=== PATIENT | female | born 1985 | race Caucasian/White ===

== ENCOUNTER 2017-03-28 07:05 | Emergency (ER) | payer BC ==
--- NOTE | 2017-03-28 07:19 | UC ---
Throat Pain/Nasal [place] HPI - HPI Summary HPI Summary: 31 YEAR OLD FEMALE PRESENTS WITH COMPLAINS OF SORE THROAT. SISTER POSITIVE FOR STREP. - History of Current Complaint Stated Complaint: SORE THROAT Time Seen by Provider: 03/28/17 07:19 Hx Last Menstrual Period: 6 mos - Allergies/Home Medications Allergies/Adverse Reactions: Allergies Allergy/AdvReac Type Severity Reaction Status Date / Time seasonal Allergy Sneezing Uncoded 10/07/15 08:02 Home Medications: Home Medications Acetaminophen TAB* [Tylenol TAB*] 500 mg PO ONCE PRN 03/28/17 [History Confirmed 03/28/17] Ibuprofen TAB* [Motrin TAB* 600 MG] 600 mg PO DAILY PRN 03/28/17 [History Confirmed 03/28/17] Loratadine [Claritin 10 MG CAP] 10 mg PO ONCE PRN 03/28/17 [History Confirmed ] Topical Fungal 1 applic TOPICAL BID 03/28/17 [History Confirmed 03/28/17] PMH/Surg Hx/FS Hx/Imm Hx - Surgical History Surgical History: Yes Surgery Procedure, Year, and Place: right shoulder x2 1999, right knee arthroscopy 1999 - Social History Alcohol Use: Occasionally Substance Use Type: None Smoking Status (MU): Never Smoked Tobacco Review of Systems Constitutional: Negative Skin: Negative Eyes: Negative ENT: Sore Throat, Nasal Discharge Respiratory: Negative Cardiovascular: Negative Gastrointestinal: Negative Genitourinary: Negative Motor: Negative Neurovascular: Negative Musculoskeletal: Negative Neurological: Negative Psychological: Negative All Other Systems Reviewed And Are Negative: Yes Physical Exam Triage Information Reviewed: Yes Eye Exam: Normal ENT Exam: Normal ENT: Positive: Pharyngeal erythema, Nasal congestion Dental Exam: Normal Neck exam: Normal Neck: Positive: 1 Respiratory Exam: Normal Cardiovascular Exam: Normal Abdominal Exam: Normal Musculoskeletal Exam: Normal Neurological Exam: Normal Psychological Exam: Normal Skin Exam: Normal Throat Pain/Nasal Course/Dx - Differential Dx/Diagnosis Provider Diagnoses: PHARYNGITIS. POST NASAL DRIP Discharge - Discharge Plan Condition: Stable Disposition: HOME Prescriptions: Amoxicillin/Clavulanate TAB* [Augmentin TAB 875*] 875 mg PO BID #14 tab Magic M W2 Andrea/Maal/Nyst/Lido* 5 ml SWISH SWAL QID #120 ml Patient Education Materials: Pharyngitis (ED) Referrals: Non Staff,Doctor [Medical Doctor] - If Needed
[2017-03-28 07:36] VITALS: BP 105/58
== END 2017-03-28 07:54 | disposition home or self-care (01) ==
LOC: UCCORT 07:05
DX: J02.9 Acute pharyngitis, unspecified (principal); R09.82 Postnasal drip
CPT/HCPCS: 87651; 99212; G0463

== ENCOUNTER 2019-08-26 09:18 | Emergency (ER) | payer BC ==
[2019-08-26] MEDS ORDERED: Albuterol/Ipratropium NEB.SOL* Albuterol 2.5 MG/Ipratropium 0.5 MG 3 ML INH ONE (09:31)
[2019-08-26 09:33] VITALS: BP 127/71
--- NOTE | 2019-08-26 09:38 | UC ---
Respiratory Complaint HPI - HPI Summary HPI Summary: 33-year-old female who started having shortness of breath approximately 20 minutes prior to arrival. She was out blowing snow when she started feeling that. She has a history of asthma and states in the past she used to "pre-treat " with her albuterol inhaler because she would have a similar reaction when exposed to the cold, however her inhaler was completely out. She has had some minor cold symptoms over the past 4 or 5 days with head congestion and runny nose. - History of Current Complaint Stated Complaint: ASTHMA Time Seen by Provider: 08/26/19 09:23 Hx Obtained From: Patient Hx Last Menstrual Period: DOES NOT HAVE REG PERIODS. ?: No Onset/Duration: Gradual Onset Timing: Constant Severity Initially: Moderate Severity Currently: Moderate Character: Cough: Nonproductive Aggravating Factors: Other - Cold air being outside. Alleviating Factors: Bronchodilator - Patient usually pretreats with an albuterol inhaler however she has run out of that. Associated Signs And Symptoms: Positive: Dyspnea, URI, Nasal Congestion - Risk Factors Pulmonary Embolism Risk Factors: Oral Contraceptives - Allergies/Home Medications Allergies/Adverse Reactions: Allergies Allergy/AdvReac Type Severity Reaction Status Date / Time seasonal Allergy Sneezing Uncoded 08/26/19 09:31 Home Medications: Home Medications D-Methorphan/PE/Acetaminophen [Vicks Dayquil Cold & Flu] 2 cap PO Q6H PRN [History Confirmed 08/26/19] PMH/Surg Hx/FS Hx/Imm Hx Previously Healthy: Yes Respiratory History: Asthma - Surgical History Surgical History: Yes Surgery Procedure, Year, and Place: right shoulder x2 1999, right knee arthroscopy 1999 - Family History Known Family History: Positive: Non-Contributory - Social History Alcohol Use: Occasionally Substance Use Type: None Smoking Status (MU): Never Smoked Tobacco - Immunization History Most Recent Influenza Vaccination: JUN 2017 Review of Systems All Other Systems Reviewed And Are Negative: Yes Constitutional: Positive: Fever - Patient states she had a fever Monday and Monday but that has resolved. ENT: Positive: Nasal Discharge, Sinus Congestion Respiratory: Positive: Shortness Of Breath Is Patient Immunocompromised?: No Physical Exam Triage Information Reviewed: Yes Appearance: Well-Appearing, No Pain Distress, Well-Nourished Vital Signs Reviewed: Yes Eyes: Positive: Conjunctiva Clear ENT: Positive: Hearing grossly normal, Pharynx normal, TMs normal, Uvula midline Neck: Positive: Supple, Nontender, No Lymphadenopathy Respiratory: Positive: Lungs clear, Normal breath sounds, No respiratory distress, No accessory muscle use - Good air movement throughout all lung gould , no wheezing. The patient is not in distress however she is feeling short of breath. A DuoNeb treatment is being started immediately. Cardiovascular: Positive: RRR, No Murmur, Pulses Normal, Brisk Capillary Refill Musculoskeletal Exam: Normal Neurological Exam: Normal Psychological Exam: Normal Skin Exam: Normal Respiratory Course/Dx - Course Course Of Treatment: DuoNeb treatment: Patient felt much relief with the DuoNeb treatment. I offered steroids however she states that she did not need that. She would request an albuterol inhaler prescription which was done with one refill. If she has any worsening symptoms she is to go to the emergency room. The patient is sitting comfortably in no distress. - Differential Dx/Diagnosis Provider Diagnosis: Reactive airway disease with acute exacerbation Discharge ED - Sign-Out/Discharge Documenting (check all that apply): Patient Departure All imaging exams completed and their final reports reviewed: No Studies - Discharge Plan Condition: Good Disposition: HOME Prescriptions: Albuterol HFA INHALER* [Ventolin HFA Inhaler*] 2 puff INH Q4H PRN 5 Days #1 mdi PRN Reason: Dyspnea Albuterol HFA INHALER* [Ventolin HFA Inhaler*] 2 puff INH Q4H PRN 5 Days #1 mdi PRN Reason: Dyspnea Amoxicillin PO (*) [Amoxicillin 875 MG (*)] 875 mg PO BID 10 Days #20 tab Inhaler, Assist Devices [Aerochamber Z-Stat Plus/F] 1 mis PO DAILY #1 tube Patient Education Materials: Reactive Airways Disease (ED) Referrals: Vita Marcus MD [Primary Care Provider] - Additional Instructions: Use your albuterol inhaler with a spacer 2 puffs every 4 hours while awake as needed for dyspnea or wheezing. Follow-up with your primary care provider in 2- 3 days if no improvement or if you have any worsening symptoms with difficulty breathing or any chest pain your to go to the emergency room for further treatment. - Billing Disposition and Condition Condition: GOOD Disposition: Home
== END 2019-08-26 10:06 | disposition home or self-care (01) ==
LOC: UCCORT 09:18
DX: J45.901 Unspecified asthma with (acute) exacerbation (principal); J06.9 Acute upper respiratory infection, unspecified; R09.81 Nasal congestion; Z91.09 Other allergy status, other than to drugs and biological substances
CPT/HCPCS: 99212; A9270-GY; G0463